=== PATIENT | male | born 1950 | race Native Hawaiian/Other Pacific Islander ===

== ENCOUNTER 2018-10-15 11:35 | Inpatient (IN) | payer MEDICARE ==
[2018-10-15 12:58] LABS: BASO # 0.1 K/uL (0.0-0.2); BASO % 1.1 % (0.0-2.0); EOS # 0.2 K/uL (0.0-0.7); EOS % 2.6 % (0.0-4.0); HEMOGLOBIN 13.6 g/dL (12.0-18.0); LYMPH # 1.6 K/uL (1.0-4.3); LYMPH % 25.6 % (20.0-40.0); MEAN CELL VOLUME 85.9 fL (80.0-94.0); MEAN CORPUSCULAR HEMOGLOBIN 28.6 pg (27.0-31.0); MEAN CORPUSCULAR HGB CONC 33.3 g/dL (33.0-37.0); MEAN PLATELET VOLUME 10.4 fL (7.2-11.7); MONO # 0.7 K/uL (0.0-0.8); MONO % 11.5 % (0.0-10.0); NEUT # 3.6 K/uL (1.8-7.0); NEUT % 59.2 % (50.0-75.0); NRBC % 0.1 % (0.0-2.0); RBC 4.77 Mil/uL (4.40-5.90); RED CELL DISTRIBUTION WIDTH 14.9 % (11.5-14.5); WHITE BLOOD COUNT 6.1 K/uL (4.8-10.8)
--- NOTE | 2018-10-15 13:05 | RAD ---
HISTORY: SOB COMPARISON: Chest x-ray performed 04/29/18 TECHNIQUE: Chest, one view. FINDINGS: Examination limited by habitus. LUNGS: Central vascular prominence. No focal consolidation. Please note that chest x-ray has limited sensitivity for the detection of pulmonary masses. PLEURA: No significant pleural effusion identified. No definite pneumothorax . CARDIOVASCULAR: Cardiomegaly. Atherosclerotic calcifications present. OSSEOUS STRUCTURES: No acute osseous abnormality identified. VISUALIZED UPPER ABDOMEN: Unremarkable. OTHER FINDINGS: None. IMPRESSION: Cardiomegaly. Central vascular prominence. No focal consolidation.
[2018-10-15 13:06] LABS: INR 1.4; PROTHROMBIN TIME 15.5 SECONDS (9.7-12.2)
[2018-10-15 13:11] LABS: ALB/GLOB RATIO 1.2 (1.0-2.1); ALBUMIN 4.4 g/dL (3.5-5.0); BLOOD UREA NITROGEN 23 mg/dL (9-20); CALCIUM 8.4 mg/dl (8.6-10.4); GFR NON-AFRICAN AMERICAN > 60
[2018-10-15 13:19] LABS: ALT/SGPT 31 U/L (21-72); AST/SGOT 43 U/L (17-59)
[2018-10-15 13:22] LABS: B-TYPE NATRIURETIC PEPTIDE 3470 pg/mL (0-900)
[2018-10-15] MEDS ORDERED: Dextrose 50% SYRINGE Inj (50 ml) ONE (14:14)
[2018-10-15] MEDS ORDERED: Dextrose 50% SYRINGE Inj (50 ml) IV STA (14:24)
--- NOTE | 2018-10-15 14:47 | C.PDOC ---
History Of Present Illness 68 year old male with a history of CHF presents to the ED for evaluation of bilateral lower extremity swelling and knee pain for 5 days. Denies fever, chills, and any other associated symptoms. Time Seen by Provider: 10/15/18 12:05 Chief Complaint (Nursing): Lower Extremity Problem/Injury History Per: Patient History/Exam Limitations: no limitations Onset/Duration Of Symptoms: Days (x5) Current Symptoms Are (Timing): Still Present Recent travel outside of the [place]: No Past Medical History Reviewed: Historical Data, Nursing Documentation, Vital Signs Vital Signs: Last Vital Signs Temp 98.0 F 10/15/18 11:52 Pulse 71 10/15/18 14:05 Resp 18 10/15/18 14:05 BP 156/99 H 10/15/18 14:05 Pulse Ox 96 10/15/18 11:52 - Medical History PMH: Arthritis, Asthma, Atrial Fibrillation, Bronchitis, CHF, COPD, HTN, Hypercholesterolemia, Sleep Apnea Denies: Chronic Kidney Disease Family History: States: Unknown Family Hx - Social History Hx Alcohol Use: No Hx Substance Use: No - Immunization History Hx Tetanus Toxoid Vaccination: No Hx Influenza Vaccination: No Hx Pneumococcal Vaccination: No Review Of Systems Except As Marked, All Systems Reviewed And Found Negative. Constitutional: Negative for: Fever, Chills Musculoskeletal: Positive for: Leg Pain (bilateral knee pain. ), Other (bilateral lower extremity swelling. ) Physical Exam - Physical Exam Appears: Well, Non-toxic, No Acute Distress Skin: Normal Color, Warm, Dry Head: Atraumatic, Normacephalic Eye(s): bilateral: Normal Inspection Oral Mucosa: Moist Neck: Normal ROM Chest: Symmetrical Cardiovascular: Rhythm Regular, No Murmur Respiratory: No Rales, No Rhonchi, No Wheezing, Other (crackles in the bases, bilaterally. ) Gastrointestinal/Abdominal: Normal Exam, Soft, No Tenderness Extremity: Normal ROM, Tenderness (bilateral knee tenderness. ), No Deformity, Other (Pedal edema 2+ ) Neurological/Psych: Oriented x3, Normal Speech, Normal Cognition ED Course And Treatment - Laboratory Results Result Diagrams: 10/15/18 12:35 10/15/18 12:00 ECG Rhythm: Atrial Fibrillation, Nonspecific Changes Rate From EC O2 Sat by Pulse Oximetry: 96 (RA) Pulse Ox Interpretation: Normal - Other Rad CXR X-Ray: Viewed By Me, Read By Radiologist Interpretation: FINDINGS: Examination limited by habitus. LUNGS: Central vascular prominence. No focal consolidation. Please note that chest x-ray has limited sensitivity for the detection of pulmonary masses. PLEURA: No significant pleural effusion identified. No definite pneumothorax . CARDIOVASCULAR: Cardiomegaly. Atherosclerotic calcifications present. OSSEOUS STRUCTURES: No acute osseous abnormality identified. VISUALIZED UPPER ABDOMEN: Unremarkable. OTHER FINDINGS: None. IMPRESSION: Cardiomegaly. Central vascular prominence. No focal consolidation. Medical Decision Making Medical Decision Making: Plan: -EKG -Dextrose 50% -Blood sent. -CXR -Glucose POC Progress/Update: 2:51pm : Spoke with Dr. Smith regarding the patients case. Accepted to TELE/OBS. 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 - Scribe Statement The provider has reviewed the documentation as recorded by the Scribe (Lucinda Pinon) All medical record entries made by the Scribe were at my direction and personally dictated by me. I have reviewed the chart and agree that the record accurately reflects my personal performance of the history, physical exam, medical decision making, and the department course for this patient. I have also personally directed, reviewed, and agree with the discharge instructions and disposition. Decision To Admit - Pt Status Changed To: Hospital Disposition Of: Observation - . Bed Request Type: Telemetry Admitting Physician: Paulina Smith Patient Diagnosis: CHF (congestive heart failure), Hypoglycemia
[2018-10-15] MEDS ORDERED: Potassium Chloride 20 mEq/15 ml LIQ UD PO STA (15:25)
[2018-10-15] MEDS ORDERED: Potassium Chloride 20 mEq/15 ml LIQ UD ONE (15:34)
--- NOTE | 2018-10-15 16:49 | RAD ---
Date of service: 10/15/2018 PROCEDURE: Bilateral Knee Radiographs. HISTORY: pain, atraumatic COMPARISON: None available. FINDINGS: BONES: Right Knee: No acute displaced fracture identified. Degenerative changes. Left Knee: No acute displaced fracture identified. Degenerative changes. JOINTS: Right Knee: No dislocation. Mild joint space narrowing, greatest at the medial compartment. Left knee: No dislocation. Mild joint space narrowing, greatest at the medial compartment. SOFT TISSUES: Right Knee: Vascular calcifications. No evidence of radiopaque foreign body. Left Knee: Vascular calcifications. No evidence of radiopaque foreign body. JOINT EFFUSION: Right Knee: Small suprapatellar joint effusion. Left Knee: No significant joint effusion identified. OTHER FINDINGS: None. IMPRESSION: Degenerative changes. Small right suprapatellar joint effusion.
[2018-10-15] MEDS ORDERED: Home Med 1 UNIT (Metformin [Glucophage] 1,000 MG) PO SCH (18:00)
[2018-10-15 20:25] VITALS: RESP 20
[2018-10-16 07:35] LABS: BLOOD UREA NITROGEN 21 mg/dL (9-20); CALCIUM 8.8 mg/dl (8.6-10.4); GFR NON-AFRICAN AMERICAN > 60; URIC ACID 4.9 mg/dL (3.5-8.5)
[2018-10-16 07:46] LABS: CK-MB 1.41 ng/mL (0.0-3.38)
[2018-10-16] MEDS: Fluticasone-Vilanterol 100/25mcg Diskus INH SCH (09:54)
[2018-10-16] MEDS: Pantoprazole 40 mg EC Tab PO SCH (09:57)
[2018-10-16] MEDS ORDERED: Home Med 1 UNIT (Febuxostat [Uloric] 40 MG) PO SCH (10:00)
[2018-10-16] MEDS ORDERED: Home Med 1 UNIT (Linagliptin [Tradjenta] 5 MG) PO SCH (10:00)
[2018-10-16] MEDS: Potassium Chloride 20 mEq ER Tab PO SCH ×2 (10:06→18:41)
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
[2018-10-16] MEDS: MethylPREDNISolone 40 mg Vial IVP SCH ×2 (18:36→22:36)
[2018-10-16] MEDS: Albuterol-Ipratrop 3 mg / 0.5 (3 ml) UD INH SCH (19:24)
[2018-10-16] MEDS: Azithromycin 500 MG in Sodium Chloride 0.9% 250 ML IVPB SCH (21:30)
[2018-10-17] MEDS: Albuterol-Ipratrop 3 mg / 0.5 (3 ml) UD INH SCH ×4 (03:13→21:08)
[2018-10-17] MEDS: MethylPREDNISolone 40 mg Vial IVP SCH ×3 (05:37→22:15)
[2018-10-17 06:51] LABS: ALB/GLOB RATIO 1.2 (1.0-2.1); ALBUMIN 4.6 g/dL (3.5-5.0); ALT/SGPT 30 U/L (21-72); AST/SGOT 38 U/L (17-59); BLOOD UREA NITROGEN 24 mg/dL (9-20); CALCIUM 8.8 mg/dl (8.6-10.4); GFR NON-AFRICAN AMERICAN > 60
[2018-10-17] MEDS: Fluticasone-Vilanterol 100/25mcg Diskus INH SCH (07:40)
[2018-10-17] MEDS: Potassium Chloride 20 mEq ER Tab PO SCH ×2 (09:19→17:12)
[2018-10-17] MEDS: Pantoprazole 40 mg EC Tab PO SCH (09:19)
--- NOTE | 2018-10-17 12:22 | CP.PCM.PN ---
Subjective - Date & Time of Evaluation Date of Evaluation: 10/17/18 Time of Evaluation: 11:50 - Subjective Subjective: -patient less short of breath but still complains of difficulty ambulating because of pain on both feet and shortness of breath -Feet still swollen but seems less today- will get arterial and venous duplex scan -no chest pain -BP still elevated most of the time. adjusting meds -pulmonary consult noted and appreciated -Echocardiogram done. will review Objective - Vital Signs/Intake and Output Vital Signs (last 24 hours): Temp Pulse Resp BP Pulse Ox 97.6 F 77 20 168/92 H 98 10/17/18 08:00 10/17/18 11:35 10/17/18 08:00 10/17/18 11:35 10/17/18 08:00 - Medications Medications: Current Medications Albuterol/Ipratropium (Duoneb 3 Mg/0.5 Mg (3 Ml) Ud) 3 ml INH RQ6 [facility] Last Admin: 10/17/18 07:40 Dose: Not Given Amlodipine Besylate (Norvasc) 5 mg PO DAILY [facility] Last Admin: 10/17/18 09:18 Dose: 5 mg Apixaban (Eliquis) 5 mg PO BID [facility] Last Admin: 10/17/18 09:18 Dose: 5 mg Clonidine HCl (Catapres) 0.3 mg PO BID [facility] Last Admin: 10/17/18 09:19 Dose: Not Given Fluticasone/Vilanterol (Breo Ellipta 100-25 Mcg Inh) 1 puff INH RQD [facility] Last Admin: 10/17/18 07:40 Dose: Not Given Furosemide (Lasix) 40 mg IVP DAILY [facility] Last Admin: 10/17/18 09:19 Dose: 40 mg Gabapentin (Neurontin) 100 mg PO TID [facility] Last Admin: 10/17/18 09:18 Dose: 100 mg Home Med (Febuxostat [Uloric]) 40 mg PO DAILY [facility] Home Med (Linagliptin [Tradjenta]) 5 mg PO DAILY [facility] Azithromycin 500 mg/ Sodium (Chloride) 250 mls @ 250 mls/hr IVPB Q24H [facility]; Protocol Last Admin: 10/16/18 21:30 Dose: 250 mls/hr Losartan Potassium (Cozaar) 100 mg PO DAILY [facility] Last Admin: 10/17/18 09:19 Dose: 100 mg Metformin HCl (Glucophage) 1,000 mg PO BID [facility] Last Admin: 10/17/18 09:19 Dose: 1,000 mg Methylprednisolone (Solu-Medrol) 40 mg IVP Q8 [facility] Last Admin: 10/17/18 05:37 Dose: 40 mg Nebivolol (Bystolic) 20 mg PO DAILY [facility] Last Admin: 10/17/18 09:19 Dose: 20 mg Pantoprazole Sodium (Protonix Ec Tab) 40 mg PO DAILY [facility] Last Admin: 10/17/18 09:19 Dose: 40 mg Potassium Chloride (K-Dur 20 Meq Er Tab) 20 meq PO BID [facility] Last Admin: 10/17/18 09:19 Dose: 20 meq Repaglinide (Prandin) 2 mg PO BIDAC [facility] Last Admin: 10/17/18 09:18 Dose: 2 mg Rosuvastatin Calcium (Crestor) 10 mg PO HS [facility] Last Admin: 10/16/18 22:37 Dose: 10 mg Tramadol HCl (Ultram) 50 mg PO TID PRN PRN Reason: Pain, Mild (1-3) Last Admin: 10/16/18 22:36 Dose: 50 mg - Labs Labs: 10/15/18 12:35 10/17/18 06:24 PT 15.5 SECONDS (9.7-12.2) H 10/15/18 12:35 INR 1.4 10/15/18 12:35 APTT 39 SECONDS (21-34) H 10/15/18 12:35 - Constitutional Appears: No Acute Distress - Head Exam Head Exam: NORMOCEPHALIC - Eye Exam Eye Exam: Normal appearance - ENT Exam ENT Exam: Normal Exam - Neck Exam Neck Exam: Normal Inspection - Respiratory Exam Respiratory Exam: Clear to Ausculation Bilateral - Cardiovascular Exam Cardiovascular Exam: Irregular Rhythm, +S1, +S2 - GI/Abdominal Exam GI & Abdominal Exam: Soft, Normal Bowel Sounds - Rectal Exam Rectal Exam: Deferred - Extremities Exam Additional comments: both feet swollen. painful soles when he walks - Neurological Exam Neurological Exam: Alert, Awake, Oriented x3 - Psychiatric Exam Psychiatric exam: Normal Affect, Normal Mood - Skin Skin Exam: Dry, Normal Color, Warm Assessment and Plan (1) Shortness of breath Assessment & Plan: Continue nebulizer and steroid as per Pulmo Status: Acute (2) CHF (congestive heart failure) Assessment & Plan: Echocardiogram done today. Will review Status: Chronic (3) Uncontrolled hypertension Assessment & Plan: modifying BP meds Status: Chronic (4) Uncontrolled diabetes mellitus Assessment & Plan: Continue current Rx Status: Chronic (5) Arthritis Assessment & Plan: -still complains of pain on both feet probably from arthritis, plantar fasciitis and diabetic neuropathy -started on Gabapentin and on tramadol for arthritis. Unable to start NSAID due to concurrent anticoagulant therapy for atrial fib -will get arterial and [id number] duplex scan of both lower ext. Status: Acute (6) REINA (obstructive sleep apnea) Assessment & Plan: Pulmonary consultation noted and appreciated Status: Acute (7) Elevated BUN Assessment & Plan: most likely from diuretics and steroids. Will d/c iv lasix. Status: Acute
--- NOTE | 2018-10-17 16:12 | CARD ---
APPROVED REPORT Date of service: 10/16/2018 EKG Measurement Heart [id number] <Conclusion> Atrial fibrillation with premature ventricular or aberrantly conducted complexes Prolonged QT Abnormal ECG
--- NOTE | 2018-10-17 16:12 | CARD ---
APPROVED REPORT Date of service: 10/17/2018 EKG Measurement Heart [id number] <Conclusion> Atrial fibrillation with rapid ventricular response Nonspecific ST and T wave abnormality Prolonged QT Abnormal ECG
--- NOTE | 2018-10-17 16:18 | CP.PCM.PN ---
<Tino Escalante - Last Filed: 10/17/18 16:13> Subjective - Date & Time of Evaluation Date of Evaluation: 10/17/18 Time of Evaluation: 12:13 - Subjective Subjective: Pulmonology Note for Dr. Siddiqi Patient seen and examined this morning at bedside. Patient is complaining of paroxysmal nocturnal dyspnea. Patient is well known to Dr. Siddiqi and is known to be non-compliant with CPAP machine at home. He complains of day time fatigue. He is also complaining of right big toe pain. Denies any chest pain or shortness of breath at time of exam. Exam General: No acute distress Cardiac: irregularly irregular rhythm Pulmonary: CTA b/l Abd: soft, non-tender, non-distended Extremities: pedal edema 1+ b/l, tender to palpation of 1st digit Objective - Vital Signs/Intake and Output Vital Signs (last 24 hours): Temp Pulse Resp BP Pulse Ox 97.6 F 77 20 168/92 H 98 10/17/18 08:00 10/17/18 11:35 10/17/18 08:00 10/17/18 11:35 10/17/18 08:00 - Medications Medications: Current Medications Albuterol/Ipratropium (Duoneb 3 Mg/0.5 Mg (3 Ml) Ud) 3 ml INH RQ6 [facility] Last Admin: 10/17/18 13:40 Dose: 3 ml Allopurinol (Zyloprim) 100 mg PO DAILY [facility] Last Admin: 10/17/18 13:18 Dose: 100 mg Amlodipine Besylate (Norvasc) 5 mg PO DAILY [facility] Last Admin: 10/17/18 09:18 Dose: 5 mg Apixaban (Eliquis) 5 mg PO BID [facility] Last Admin: 10/17/18 09:18 Dose: 5 mg Clonidine HCl (Catapres) 0.2 mg PO TID [facility] Last Admin: 10/17/18 13:18 Dose: 0.2 mg Fluticasone/Vilanterol (Breo Ellipta 100-25 Mcg Inh) 1 puff INH RQD [facility] Last Admin: 10/17/18 07:40 Dose: Not Given Furosemide (Lasix) 40 mg PO BID [facility] Gabapentin (Neurontin) 100 mg PO TID [facility] Last Admin: 10/17/18 13:18 Dose: 100 mg Azithromycin 500 mg/ Sodium (Chloride) 250 mls @ 250 mls/hr IVPB Q24H [facility]; Protocol Last Admin: 10/16/18 21:30 Dose: 250 mls/hr Losartan Potassium (Cozaar) 100 mg PO DAILY [facility] Last Admin: 10/17/18 09:19 Dose: 100 mg Metformin HCl (Glucophage) 1,000 mg PO BID [facility] Last Admin: 10/17/18 09:19 Dose: 1,000 mg Methylprednisolone (Solu-Medrol) 40 mg IVP Q8 [facility] Last Admin: 10/17/18 13:24 Dose: 40 mg Nebivolol (Bystolic) 20 mg PO DAILY [facility] Last Admin: 10/17/18 09:19 Dose: 20 mg Pantoprazole Sodium (Protonix Ec Tab) 40 mg PO DAILY [facility] Last Admin: 10/17/18 09:19 Dose: 40 mg Potassium Chloride (K-Dur 20 Meq Er Tab) 20 meq PO BID [facility] Last Admin: 10/17/18 09:19 Dose: 20 meq Repaglinide (Prandin) 2 mg PO BIDAC [facility] Last Admin: 10/17/18 09:18 Dose: 2 mg Rosuvastatin Calcium (Crestor) 10 mg PO HS [facility] Last Admin: 10/16/18 22:37 Dose: 10 mg Sitagliptin Phosphate (Januvia) 100 mg PO DAILY [facility] Last Admin: 10/17/18 13:18 Dose: 100 mg Tramadol HCl (Ultram) 50 mg PO TID PRN PRN Reason: Pain, Mild (1-3) Last Admin: 10/16/18 22:36 Dose: 50 mg - Labs Labs: 10/15/18 12:35 10/17/18 06:24 PT 15.5 SECONDS (9.7-12.2) H 10/15/18 12:35 INR 1.4 10/15/18 12:35 APTT 39 SECONDS (21-34) H 10/15/18 12:35 Assessment and Plan (1) COPD exacerbation Assessment & Plan: Continue nebulizers and IV steroids Continue diuretics Pt on Symbicort due to insurance purposes Antitussive for cough Patient counseled on CPAP use at night Status: Chronic (2) REINA (obstructive sleep apnea) Assessment & Plan: Orders placed for CPAP for nighttime use - start at pressure of 10cm Patient has been non-compliant with CPAP at home. Patient counseled on importance of correct CPAP use. Status: Acute <DevangMihaela guillenLuis S - Last Filed: 10/17/18 18:17> Objective - Vital Signs/Intake and Output Vital Signs (last 24 hours): Temp Pulse Resp BP Pulse Ox 97.6 F 77 20 170/75 H 98 10/17/18 08:00 10/17/18 11:35 10/17/18 08:00 10/17/18 17:22 10/17/18 08:00 - Medications Medications: Current Medications Albuterol/Ipratropium (Duoneb 3 Mg/0.5 Mg (3 Ml) Ud) 3 ml INH RQ6 [facility] Last Admin: 10/17/18 13:40 Dose: 3 ml Allopurinol (Zyloprim) 100 mg PO DAILY [facility] Last Admin: 10/17/18 13:18 Dose: 100 mg Amlodipine Besylate (Norvasc) 5 mg PO DAILY [facility] Last Admin: 10/17/18 09:18 Dose: 5 mg Apixaban (Eliquis) 5 mg PO BID [facility] Last Admin: 10/17/18 17:12 Dose: 5 mg Clonidine HCl (Catapres) 0.2 mg PO TID [facility] Last Admin: 10/17/18 17:12 Dose: 0.2 mg Fluticasone/Vilanterol (Breo Ellipta 100-25 Mcg Inh) 1 puff INH RQD [facility] Last Admin: 10/17/18 07:40 Dose: Not Given Furosemide (Lasix) 40 mg PO BID [facility] Last Admin: 10/17/18 17:22 Dose: 40 mg Gabapentin (Neurontin) 100 mg PO TID [facility] Last Admin: 10/17/18 17:12 Dose: 100 mg Azithromycin 500 mg/ Sodium (Chloride) 250 mls @ 250 mls/hr IVPB Q24H [facility]; Protocol Last Admin: 10/17/18 17:10 Dose: 250 mls/hr Losartan Potassium (Cozaar) 100 mg PO DAILY [facility] Last Admin: 10/17/18 09:19 Dose: 100 mg Metformin HCl (Glucophage) 1,000 mg PO BID [facility] Last Admin: 10/17/18 17:24 Dose: 1,000 mg Methylprednisolone (Solu-Medrol) 40 mg IVP Q8 [facility] Last Admin: 10/17/18 13:24 Dose: 40 mg Nebivolol (Bystolic) 20 mg PO DAILY [facility] Last Admin: 10/17/18 09:19 Dose: 20 mg Pantoprazole Sodium (Protonix Ec Tab) 40 mg PO DAILY [facility] Last Admin: 10/17/18 09:19 Dose: 40 mg Potassium Chloride (K-Dur 20 Meq Er Tab) 20 meq PO BID [facility] Last Admin: 10/17/18 17:12 Dose: 20 meq Repaglinide (Prandin) 2 mg PO BIDAC [facility] Last Admin: 10/17/18 17:24 Dose: 2 mg Rosuvastatin Calcium (Crestor) 10 mg PO HS [facility] Last Admin: 10/16/18 22:37 Dose: 10 mg Sitagliptin Phosphate (Januvia) 100 mg PO DAILY [facility] Last Admin: 10/17/18 13:18 Dose: 100 mg Tramadol HCl (Ultram) 50 mg PO TID PRN PRN Reason: Pain, Mild (1-3) Last Admin: 10/17/18 17:10 Dose: 50 mg - Labs Labs: 10/15/18 12:35 10/17/18 06:24 PT 15.5 SECONDS (9.7-12.2) H 10/15/18 12:35 INR 1.4 10/15/18 12:35 APTT 39 SECONDS (21-34) H 10/15/18 12:35 Assessment and Plan (1) COPD exacerbation Status: Chronic (2) REINA (obstructive sleep apnea) Status: Acute Attending/Attestation - Attestation I have personally seen and examined this patient.: Yes I have fully participated in the care of the patient.: Yes I have reviewed all pertinent clinical information, including history, physical exam and plan: Yes Notes (Text): 10/17/18 18:16 the patient seen and examined Advised to use CPAP at night Continue steroids, nebulizer treatment and antibiotics
--- NOTE | 2018-10-17 17:08 | CARD ---
APPROVED REPORT Date of service: 10/17/2018 EXAM: Two-dimensional and M-mode echocardiogram with Doppler and color Doppler. Other Information Quality : GoodRhythm : INDICATION Congestive Heart Failure RISK FACTORS Hypertension Obesity Hyperlipidemia Diabetes 2D DIMENSIONS IVSd1.3 (0.7-1.1cm)LVDd4.7 (3.9-5.9cm) PWd1.4 (0.7-1.1cm)LA [id number] (18-58mL) LVDs3.0 (2.5-4.0cm)FS (%) 36.3 % LVEF (%)66.0 (>50%)LVEF (Perez's)56.89 % M-Mode DIMENSIONS Left Atrium (MM)5.74 (2.5-4.0cm)IVSd1.02 (0.7-1.1cm) Aortic Root3.66 (2.2-3.7cm)LVDd6.61 (4.0-5.6cm) Aortic Cusp Exc.1.51 (1.5-2.0cm)PWd1.02 (0.7-1.1cm) FS (%) 28 %LVDs4.74 (2.0-3.8cm) LVEF (%)53 (>50%) Mitral Valve MV E Xieieprq091.6cm/sMV A Xafisfmx27.8cm/sE/A ratio3.7 TDI Lateral E' Peak V7.96cm/sMedial E' Peak V5.77cm/sE/Lateral E'17.7 E/Medial E'24.4 Tricuspid Valve TR Peak Aiiounuj023vx/sTR Peak Gr.[id number] LEFT VENTRICLE The left ventricle is normal size. There is mild concentric left ventricular hypertrophy. The Ejection Fraction is 60-65%. There is normal LV segmental wall motion. Transmitral Doppler flow pattern is Grade II-pseudonormal filling dynamics. The left atrial pressure is moderately elevated.mildly elevated la volume index of 39 cc/sqm. RIGHT VENTRICLE The right ventricle is normal size. The right ventricular systolic function is normal. ATRIA The left atrium is severely dilated. The right atrium size is normal. The interatrial septum is intact with no evidence for an atrial septal defect. AORTIC VALVE The aortic valve is trileaflet. The aortic valve is mildly sclerotic. There is trace aortic regurgitation. MITRAL VALVE Mitral annular calcification is mild to moderate. Mitral regurgitation is mild. TRICUSPID VALVE The tricuspid valve is normal in structure. There is moderate tricuspid regurgitation. Right ventricular systolic pressure is estimated at 70 mmHg. There is severe pulmonary hypertension. PULMONIC VALVE The pulmonary valve is normal in structure. GREAT VESSELS The aortic root is normal size. The aortic root displays mild sclerocalcific changes of the aortic root. ivc is mildly dilated with normal inspiratory collpse, PERICARDIAL EFFUSION There is no pericardial effusion. <Conclusion> The left ventricle is normal size. There is mild concentric left ventricular hypertrophy. The Ejection Fraction is 60-65%. Transmitral Doppler flow pattern is Grade II-pseudonormal filling dynamics. The left atrial pressure is moderately elevated.mildly elevated la volume index of 39 cc/sqm. The left atrium is severely dilated. Mitral regurgitation is mild. There is moderate tricuspid regurgitation. Right ventricular systolic pressure is estimated at 70 mmHg. There is severe pulmonary hypertension. The aortic root is normal size. The aortic root displays mild sclerocalcific changes of the aortic root. ivc is mildly dilated with normal inspiratory collpse, There is no pericardial effusion.
[2018-10-17] MEDS: Azithromycin 500 MG in Sodium Chloride 0.9% 250 ML IVPB SCH (17:10)
--- NOTE | 2018-10-17 21:45 | CARD ---
APPROVED REPORT Date of service: 10/15/2018 EKG Measurement Heart [id number] <Conclusion> Atrial fibrillation Nonspecific T wave abnormality Abnormal ECG
[2018-10-18] MEDS: Albuterol-Ipratrop 3 mg / 0.5 (3 ml) UD INH SCH ×2 (01:20→07:45)
[2018-10-18] MEDS: MethylPREDNISolone 40 mg Vial IVP SCH ×2 (05:33→13:38)
[2018-10-18 07:22] LABS: BASO % 0.2 % (0.0-2.0); EOS % 0.2 % (0.0-4.0); HEMOGLOBIN 12.9 g/dL (12.0-18.0); LYMPH # 0.9 K/uL (1.0-4.3); LYMPH % 7.5 % (20.0-40.0); MEAN CELL VOLUME 85.7 fL (80.0-94.0); MEAN CORPUSCULAR HEMOGLOBIN 28.2 pg (27.0-31.0); MEAN CORPUSCULAR HGB CONC 32.9 g/dL (33.0-37.0); MEAN PLATELET VOLUME 11.2 fL (7.2-11.7); MONO # 0.5 K/uL (0.0-0.8); NEUT # 10.5 K/uL (1.8-7.0); NEUT % 88.1 % (50.0-75.0); PLATELET COUNT 235 K/uL (130-400); RBC 4.58 Mil/uL (4.40-5.90); RED CELL DISTRIBUTION WIDTH 14.6 % (11.5-14.5)
[2018-10-18 07:39] LABS: ALB/GLOB RATIO 1.2 (1.0-2.1); ALBUMIN 4.6 g/dL (3.5-5.0); ALT/SGPT 32 U/L (21-72); AST/SGOT 33 U/L (17-59); BLOOD UREA NITROGEN 30 mg/dL (9-20); CALCIUM 8.7 mg/dl (8.6-10.4); GFR NON-AFRICAN AMERICAN > 60
[2018-10-18] MEDS: Fluticasone-Vilanterol 100/25mcg Diskus INH SCH (07:45)
[2018-10-18 08:19] VITALS: TEMP 97.7; O2SAT 97
[2018-10-18 09:04] LABS: LYMPHOCYTE 6 % (20-40); MONOCYTE 4 % (0-10); NEUTROPHIL 90 % (50-75); PLATELET ESTIMATE NORMAL (NORMAL); TOTAL CELLS COUNTED 100
[2018-10-18 10:23] VITALS: BP 164/90
[2018-10-18] MEDS: Potassium Chloride 20 mEq ER Tab PO SCH (10:55)
[2018-10-18] MEDS: Pantoprazole 40 mg EC Tab PO SCH (10:56)
[2018-10-18 12:37] VITALS: PULSE 90
--- NOTE | 2018-10-18 13:04 | CP.PCM.DIS ---
Provider - Provider Date of Admission: 10/16/18 14:41 Attending physician: Paulina Smith MD Primary care physician: Anita Smith Consults: 10/16/18 14:15 Pulmonology Consult Routine Comment: Consulting Provider: Luis Siddiqi Consulting Physician: Luis Siddiqi Reason for Consult: shortness of breath, REINA Time Spent in preparation of Discharge (in minutes): 45 Diagnosis - Discharge Diagnosis (1) Shortness of breath Status: Chronic Comment: Shortness of breath much improved.Patient claims to feel better. (2) CHF (congestive heart failure) Status: Chronic Priority: Medium Comment: Acute on chronic biventricular diastolic heart failure. Will continue current Rx. Echocardiogram noted. concentric LVH, severely dilated LA, LVEF- 60- 65%. +Severe pulmonary hypertension noted. (3) REINA (obstructive sleep apnea) Status: Chronic Comment: Advised to follow up with Business Relationship Manager regarding machine problem. Echocardiogram noted- severe pulmonary hypertension noted contributing to the shortness of breath. (4) Uncontrolled hypertension Status: Chronic Comment: Improving on current medications. Will continue same and follow up in office next week. (5) Uncontrolled diabetes mellitus Status: Chronic Comment: noted blood sugar elevation today most likely from the steroids (6) Diabetic neuropathy associated with type 2 diabetes mellitus Status: Chronic Comment: Most likely cause of foot pain. Imprpved with gabapentin and duloxetine. Will continue same at home. (7) Arthritis Status: Chronic Comment: Foot pain most likely more from neuropathy than arthritis. Started on Gabapentin and Duloxetine. (8) Elevated BUN Status: Acute Comment: Most likely from the diuretics and steroids. Will follow up outpatient. (9) Elevated WBC count Status: Acute Comment: Most likely from steroids also. Will follow outpatient. (10) Morbid obesity Status: Chronic Comment: Advised to lose weight. Hospital Course - Lab Results Lab Results: Most Recent Lab Values WBC 12.0 K/uL (4.8-10.8) H D 10/18/18 07:02 RBC 4.58 Mil/uL (4.40-5.90) 10/18/18 07:02 Hgb 12.9 g/dL (12.0-18.0) 10/18/18 07:02 Hct 39.3 % (35.0-51.0) 10/18/18 07:02 MCV 85.7 fL (80.0-94.0) 10/18/18 07:02 MCH 28.2 pg (27.0-31.0) 10/18/18 07:02 MCHC 32.9 g/dL (33.0-37.0) L 10/18/18 07:02 RDW 14.6 % (11.5-14.5) H 10/18/18 07:02 Plt Count 235 K/uL (130-400) 10/18/18 07:02 MPV 11.2 fL (7.2-11.7) 10/18/18 07:02 Neut % (Auto) 88.1 % (50.0-75.0) H 10/18/18 07:02 Lymph % (Auto) 7.5 % (20.0-40.0) L 10/18/18 07:02 Cottle % (Auto) 4.0 % (0.0-10.0) 10/18/18 07:02 Eos % (Auto) 0.2 % (0.0-4.0) 10/18/18 07:02 Baso % (Auto) 0.2 % (0.0-2.0) 10/18/18 07:02 Neut # (Auto) 10.5 K/uL (1.8-7.0) H 10/18/18 07:02 Lymph # (Auto) 0.9 K/uL (1.0-4.3) L 10/18/18 07:02 Cottle # (Auto) 0.5 K/uL (0.0-0.8) 10/18/18 07:02 Eos # (Auto) 0.0 K/uL (0.0-0.7) 10/18/18 07:02 Baso # (Auto) 0.0 K/uL (0.0-0.2) 10/18/18 07:02 Neutrophils % (Manual) 90 % (50-75) H 10/18/18 07:02 Lymphocytes % (Manual) 6 % (20-40) L 10/18/18 07:02 Monocytes % (Manual) 4 % (0-10) 10/18/18 07:02 Platelet Estimate Normal (NORMAL) 10/18/18 07:02 RBC Morphology Normal 10/18/18 07:02 PT 15.5 SECONDS (9.7-12.2) H 10/15/18 12:35 INR 1.4 10/15/18 12:35 APTT 39 SECONDS (21-34) H 10/15/18 12:35 Sodium 139 mmol/L (132-148) 10/18/18 07:02 Potassium 3.6 mmol/L (3.6-5.2) 10/18/18 07:02 Chloride 100 mmol/L (98-107) 10/18/18 07:02 Carbon Dioxide 24 mmol/L (22-30) 10/18/18 07:02 Anion Gap 18 (10-20) 10/18/18 07:02 BUN 30 mg/dL (9-20) H 10/18/18 07:02 Creatinine 1.1 mg/dL (0.8-1.5) 10/18/18 07:02 Est GFR ( Amer) > 60 10/18/18 07:02 Est GFR (Non-Af Amer) > 60 10/18/18 07:02 POC Glucose (mg/dL) 323 mg/dL (65-110) H 10/18/18 11:26 Random Glucose 174 mg/dL (75-110) H 10/18/18 07:02 Hemoglobin A1c 6.9 % (4.2-6.5) H 10/16/18 07:18 Uric Acid 4.9 mg/dL (3.5-8.5) 10/16/18 07:18 Calcium 8.7 mg/dl (8.6-10.4) 10/18/18 07:02 Magnesium 1.9 mg/dL (1.6-2.3) 10/15/18 12:00 Total Bilirubin 0.4 mg/dL (0.2-1.3) 10/18/18 07:02 AST 33 U/L (17-59) 10/18/18 07:02 ALT 32 U/L (21-72) 10/18/18 07:02 Alkaline Phosphatase 65 U/L (38-126) 10/18/18 07:02 Total Creatine Kinase 177 U/L (55-170) H 10/16/18 19:44 CK-MB (Mass) 1.30 ng/mL (0.0-3.38) 10/16/18 19:44 Troponin I < 0.0120 ng/mL (0.00-0.120) 10/16/18 19:44 NT-Pro-B Natriuret Pep 3470 pg/mL (0-900) H 10/15/18 12:00 Total Protein 8.3 g/dL (6.3-8.3) 10/18/18 07:02 Albumin 4.6 g/dL (3.5-5.0) 10/18/18 07:02 Globulin 3.7 gm/dL (2.2-3.9) 10/18/18 07:02 Albumin/Globulin Ratio 1.2 (1.0-2.1) 10/18/18 07:02 - Hospital Course Hospital Course: This is a 68 y/o male hypertensive, diabetic, morbidly obeses with history of CHF, COPD and REINA who was admitted because of shortness of breath and foot pain and swelling. He was seen in the ER and found to be hypoglycemic with blood sugar of 36 and quite short of breath hence he was admitted. His blood sugar was monitored and medications were adjusted accordingly. patient was restarted back on his medicines including IV Lasix and O2. Pulmonology consultation was requested who added nebulizers and steroids. he was also given Gabapentine and Duloxetine for diabetic neuropathy. His uric acid was wnl. Colcrys was discontinued without any adverse response. He had an echocardiogram done that showed concentric LVH with normal EF, dilated LA and severe pulmanry HTN. He started feeling better and was subsequently discharged. He will continue with most of his medications. Arrangements for outpatient follow up was made by myself. He was also advised to follow up with Business Relationship Manager. - Date & Time of H&P Date of H&P: 10/18/18 Time of H&P: 01:00 Discharge Exam - Head Exam Head Exam: NORMOCEPHALIC - Eye Exam Eye Exam: Normal appearance - Neck Exam Neck exam: Normal Inspection - Respiratory Exam Respiratory Exam: Clear to PA & Lateral, NORMAL BREATHING PATTERN - Cardiovascular Exam Cardiovascular Exam: Irregular Rhythm, +S1, +S2 - GI/Abdominal Exam GI & Abdominal Exam: Unremarkable - Extremities Exam Extremities exam: pedal edema Discharge Plan - Follow Up Plan Condition: FAIR Disposition: HOME/ ROUTINE Additional Instructions: Pulmonology outpatient follow up appt. arrangements for home health nurse and aide, commode, rolling walker.
--- NOTE | 2018-10-18 15:10 | VASCLAB ---
Date of service: 10/17/2018 PROCEDURE: Lower Extremity Venous Duplex Exam. HISTORY: pain and leg swelling PRIORS: None. TECHNIQUE: Bilateral common femoral, femoral, popliteal and posterior tibial, peroneal and great saphenous veins were evaluated. Flow was assessed with color Doppler, compressibility, assessment of phasic flow and augmentation response. Report prepared by James Gomez, BS, RVT FINDINGS: RIGHT: 1. Common Femoral Vein: 1.1. Compressibility - Fully compressible: Thrombus - None : Flow - Phasic: Augmentation -Normal: Reflux - None. 2. Femoral Vein: 2.1. Compressibility - Fully compressible: Thrombus - None : Flow - Phasic: Augmentation -Normal: Reflux - None. 3. Popliteal Vein: 3.1. Compressibility - Fully compressible: Thrombus - None : Flow - Phasic: Augmentation -Normal: Reflux - None. 4. Posterior Tibial Vein: 4.1. Compressibility - Fully compressible: Thrombus - None: Flow - Phasic: Augmentation -Normal: Reflux - None. 5. Peroneal Vein: 5.1. Compressibility - Fully compressible: Thrombus - None: Flow - Phasic: Augmentation -Normal: Reflux - None. 6. Great Saphenous Vein: 6.1. Compressibility - Fully compressible: Thrombus - None: Flow - Phasic: Augmentation - Normal: Reflux - None. LEFT: 1. Common Femoral Vein: 1.1. Compressibility - Fully compressible: Thrombus - None: Flow - Phasic: Augmentation -Normal: Reflux - None. 2. Femoral Vein: 2.1. Compressibility - Fully compressible: Thrombus - None: Flow - Phasic: Augmentation -Normal: Reflux - None. 3. Popliteal Vein: 3.1. Compressibility - Fully compressible: Thrombus - None : Flow - Phasic: Augmentation -Normal: Reflux - None. 4. Posterior Tibial Vein: 4.1. Compressibility - Fully compressible: Thrombus - None: Flow - Phasic: Augmentation -Normal: Reflux - None. 5. Peroneal Vein: 5.1. Compressibility - Fully compressible: Thrombus - None: Flow - Phasic: Augmentation -Normal: Reflux - None. 6. Great Saphenous Vein: 6.1. Compressibility - Fully compressible: Thrombus - None: Flow - Phasic: Augmentation - Normal: Reflux - None. OTHER FINDINGS: Right: None significant. Left: None significant. IMPRESSION: Right: No evidence of deep or superficial vein thrombosis of the right lower extremity. Normal valve function noted of the right side. Left: No evidence of deep or superficial vein thrombosis of the left lower extremity. Normal valve function noted of the left side.
--- NOTE | 2018-10-18 16:46 | CP.PCM.PN ---
Subjective - Date & Time of Evaluation Date of Evaluation: 10/18/18 Time of Evaluation: 11:35 - Subjective Subjective: Pulmonology Progress Note for Dr. Siddiqi Patient seen and examined at bedside this morning. States that shortness of breath has improved with use of CPAP at night time. Denies any episodes of paroxysmal nocturnal dyspnea with use of CPAP. Patient is still complaining of left foot pain, which he attributes to his episodes of swelling. Patient states that his old CPAP machine prevented him from sleeping so he stopped using it. He inquired about possible smaller machine to use which would allow him to sleep at night. Patient denies fevers, chills, nausea, vomiting, diarrhea, constipation, chest pain or abdominal pain. Objective - Vital Signs/Intake and Output Vital Signs (last 24 hours): Temp Pulse Resp BP Pulse Ox 97.7 F 90 20 164/90 H 97 10/18/18 07:00 10/18/18 07:23 10/18/18 07:00 10/18/18 10:55 10/18/18 07:00 Intake and Output: 10/18/18 10/18/18 06:59 18:59 Intake Total 250 Balance 250 - Labs Labs: 10/18/18 07:02 10/18/18 07:02 PT 15.5 SECONDS (9.7-12.2) H 10/15/18 12:35 INR 1.4 10/15/18 12:35 APTT 39 SECONDS (21-34) H 10/15/18 12:35 - Constitutional Appears: No Acute Distress, Other (obese) - Head Exam Head Exam: ATRAUMATIC, NORMOCEPHALIC - Eye Exam Eye Exam: Normal appearance - ENT Exam ENT Exam: Mucous Membranes Moist - Respiratory Exam Respiratory Exam: Clear to Ausculation Bilateral, NORMAL BREATHING PATTERN. absent: Accessory Muscle Use, Rales, Rhonchi, Wheezes, Respiratory Distress - Cardiovascular Exam Cardiovascular Exam: REGULAR RHYTHM, +S1, +S2 - GI/Abdominal Exam GI & Abdominal Exam: Soft. absent: Distended, Firm, Guarding, Rigid, Tenderness Additional comments: obese - Neurological Exam Neurological Exam: Alert, Awake - Psychiatric Exam Psychiatric exam: Normal Affect, Normal Mood - Skin Skin Exam: Dry, Warm Assessment and Plan (1) COPD exacerbation Assessment & Plan: continue Symbicort. Patient stable from pulmonary standpoint for discharge Status: Chronic (2) REINA (obstructive sleep apnea) Assessment & Plan: continue CPAP while inhouse recommend smaller CPAP machine to assist patient with sleeping - will need to be set up as outpatient Status: Chronic
== END 2018-10-18 14:07 | disposition home or self-care (01) | DRG 637 ==
LOC: C.ER 11:35 → C.9E 15:20 → C.6T 16:30 → OBSVTOIN 10-16 14:41
PROVIDERS: ADMIT Internal Medicine Cardiovascular Disease; ATTEND Internal Medicine Cardiovascular Disease
DX: E11.649 Type 2 diabetes mellitus with hypoglycemia without coma (principal); I50.33 Acute on chronic diastolic (congestive) heart failure; J44.1 Chronic obstructive pulmonary disease with (acute) exacerbation; E11.40 Type 2 diabetes mellitus with diabetic neuropathy, unspecified; I11.0 Hypertensive heart disease with heart failure; E11.65 Type 2 diabetes mellitus with hyperglycemia; E66.01 Morbid (severe) obesity due to excess calories; E78.00 Pure hypercholesterolemia, unspecified; G47.33 Obstructive sleep apnea (adult) (pediatric); I27.20 Pulmonary hypertension, unspecified; I48.91 Unspecified atrial fibrillation; M72.2 Plantar fascial fibromatosis; Z87.891 Personal history of nicotine dependence; Z91.19 Patient's noncompliance with other medical treatment and regimen; Z68.39 Body mass index [BMI] 39.0-39.9, adult; Z79.84 Long term (current) use of oral hypoglycemic drugs

== ENCOUNTER 2018-10-26 09:47 | Inpatient (IN) | payer MEDICARE | END 2018-10-29 17:35 | LOC: C.ER 09:47 → C.9E 14:07 → C.3T 16:07 ==

== ENCOUNTER 2019-01-18 06:05 | Observation (INO) | payer MEDICARE ==
[2019-01-18 06:05] VITALS: BMI 39.9
--- NOTE | 2019-01-18 06:18 | C.PDOC ---
History Of Present Illness Patient woke up short of brerath and with some chest tightness. Pt received 40 mg iv lasix and 5 slntg. Pt is able to speak in 2-3 word sentences. No f/c/n/v Time Seen by Provider: 01/18/19 06:16 History Per: Patient, Family History/Exam Limitations: no limitations Onset/Duration Of Symptoms: Hrs Current Symptoms Are (Timing): Still Present Initiating Event: Other Quality: Dull, Tightness Exacerbating Factor(s): Coughing Current Respiratory Medications: See Home Med List Severity: Severe Pain Scale Rating Of: 8 Associated Symptoms: denies: Fever, Chills Reports Recently: Seen In ED, Treated By A Physician Recent travel outside of the [place]: No Additional History Per: Family Past Medical History Reviewed: Historical Data, Nursing Documentation, Vital Signs - Medical History PMH: Arthritis, Asthma, Atrial Fibrillation, Bronchitis, CHF, COPD, HTN, Hypercholesterolemia, Peripheral Edema, Sleep Apnea Denies: Chronic Kidney Disease - [facility] Procedures ASSISTANCE WITH RESPIRATORY VENTILATION, 24-96 HRS, CPAP (10/26/18) Family History: States: No Known Family Hx - Social History Hx Alcohol Use: No Hx Substance Use: No - Immunization History Hx Tetanus Toxoid Vaccination: No Hx Influenza Vaccination: No Hx Pneumococcal Vaccination: No Review Of Systems Constitutional: Negative for: Fever, Chills Eyes: Negative for: Vision Change ENT: Negative for: Throat Pain Cardiovascular: Positive for: Chest Pain Respiratory: Positive for: Shortness of Breath, SOB with Excertion Gastrointestinal: Negative for: Nausea, Vomiting, Abdominal Pain Genitourinary: Negative for: Dysuria Musculoskeletal: Negative for: Back Pain Skin: Negative for: Rash Neurological: Negative for: Weakness Psych: Negative for: Anxiety Physical Exam - Physical Exam Appears: In Acute Distress Skin: Warm, Dry Head: Normacephalic Eye(s): bilateral: Normal Inspection Oral Mucosa: Moist Neck: Supple Chest: Symmetrical Cardiovascular: Rhythm Irregular Respiratory: Decreased Breath Sounds, Rales, No Rhonchi, No Wheezing Gastrointestinal/Abdominal: Soft, No Tenderness, Distention, No Guarding, No R ebound Back: No CVA Tenderness Extremity: Pedal Edema, Swelling Extremity: Bilateral: Atraumatic Pulses: Left Dorsalis Pedis: Normal, Right Dorsalis Pedis: Normal Neurological/Psych: Oriented x3 Gait: Unable To Assess ED Course And Treatment ECG: Interpreted By Me, Viewed By Me ECG Rhythm: Atrial Fibrillation (119), Nonspecific Changes O2 Sat by Pulse Oximetry: 98 Pulse Ox Interpretation: Normal - Radiology CXR: Interpreted by Me, Viewed By Me Critical Care Time - Critical Care Note Total Time (in mins): 30 Documented critical care: time excludes all time spent performing seperately billable procedures. Disposition Counseled Patient/Family Regarding: Studies Performed, Diagnosis - Disposition Disposition Time: 06:18 Condition: GUARDED - Clinical Impression Clinical Impression: COPD exacerbation, Respiratory distress Physician Patient Turnover Patient Signed Over To: Aleta Maya Handoff Comments: pending labs, re-eval and disposition
[2019-01-18] MEDS ORDERED: Aspirin 325 mg EC Tablets PO STA (06:19)
[2019-01-18 07:00] LABS: ABG ALLEN TEST POS; ARTERIAL BLOOD GAS HCO3 20.2 mmol/L (21-28); ARTERIAL BLOOD GAS O2 SAT 100.2 % (95-98); ARTERIAL BLOOD GAS PCO2 42 mm/Hg (35-45); ARTERIAL BLOOD GAS PH 7.29 (7.35-7.45); ARTERIAL BLOOD GAS PO2 218 mm/Hg (80-100); ARTERIAL BLOOD GAS TCO2 21.5 mmol/L (22-28)
[2019-01-18] MEDS ORDERED: Aspirin 325 mg EC Tablets PO ONE ×2 (07:04→07:05)
[2019-01-18 07:10] LABS: BASO # 0.1 K/uL (0.0-0.2); BASO % 0.5 % (0.0-2.0); EOS # 0.3 K/uL (0.0-0.7); EOS % 2.5 % (0.0-4.0); HEMOGLOBIN 12.5 g/dL (12.0-18.0); LYMPH # 1.6 K/uL (1.0-4.3); LYMPH % 12.5 % (20.0-40.0); MEAN CORPUSCULAR HEMOGLOBIN 29.3 pg (27.0-31.0); MEAN CORPUSCULAR HGB CONC 33.2 g/dL (33.0-37.0); MEAN PLATELET VOLUME 9.9 fL (7.2-11.7); MONO # 0.6 K/uL (0.0-0.8); MONO % 4.6 % (0.0-10.0); NEUT # 10.4 K/uL (1.8-7.0); NEUT % 79.9 % (50.0-75.0); RBC 4.29 Mil/uL (4.40-5.90); RED CELL DISTRIBUTION WIDTH 16.2 % (11.5-14.5)
[2019-01-18 07:16] LABS: INR 1.2; PROTHROMBIN TIME 13.6 SECONDS (9.7-12.2)
[2019-01-18 07:18] LABS: MEAN CELL VOLUME 88.2 fL (80.0-94.0)
--- NOTE | 2019-01-18 08:48 | RAD ---
Date of service: 01/18/2019 HISTORY: SOB COMPARISON: None available. TECHNIQUE: 1 view obtained. FINDINGS: LUNGS: Questionable right basilar infiltrate. PA and lateral projections are recommended for added characterization as this may be artifactual from the patient's body habitus. PLEURA: No significant pleural effusion identified, no pneumothorax apparent. CARDIOVASCULAR: Calcific atherosclerotic changes are seen related to the thoracic aorta. Cardiomegaly. No pulmonary vascular congestion. OSSEOUS STRUCTURES: No significant abnormalities. VISUALIZED UPPER ABDOMEN: Normal. OTHER FINDINGS: None. IMPRESSION: Questionable in infiltrate right base. Stable cardiomegaly. No pulmonary congestion.
[2019-01-18 08:51] LABS: ALB/GLOB RATIO 1.6 (1.0-2.1); ALBUMIN 4.4 g/dL (3.5-5.0); ALT/SGPT 19 U/L (21-72); AST/SGOT 32 U/L (17-59); BLOOD UREA NITROGEN 16 mg/dL (9-20); CALCIUM 8.6 mg/dl (8.6-10.4); GFR NON-AFRICAN AMERICAN > 60
[2019-01-18 09:35] LABS: B-TYPE NATRIURETIC PEPTIDE 2410 pg/mL (0-900); CK-MB 1.28 ng/mL (0.0-3.38)
[2019-01-18] MEDS: Potassium Chloride 20 mEq ER Tab PO SCH (17:20)
[2019-01-18 18:01] LABS: CK-MB 1.61 ng/mL (0.0-3.38)
[2019-01-18 18:05] LABS: TROPONIN I 0.027 ng/mL (0.00-0.120)
[2019-01-18 19:30] LABS: SQUAMOUS EPITHIAL < 1 /hpf (0-5); URINE BACTERIA OCC (<OCC); URINE BILIRUBIN NEGATIVE (NEGATIVE); URINE BLOOD NEGATIVE (NEGATIVE); URINE CLARITY Clear (Clear); URINE COLOR Yellow (YELLOW); URINE GLUCOSE (UA) 3+ mg/dL (Normal); URINE LEUKOCYTE ESTERASE NEG Leu/uL (Negative); URINE PROTEIN 2+ mg/dL (NEGATIVE); URINE UROBILINOGEN NORMAL mg/dL (0.2-1.0)
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
[2019-01-18 23:20] LABS: CK-MB 1.82 ng/mL (0.0-3.38); TROPONIN I 0.025 ng/mL (0.00-0.120)
--- NOTE | 2019-01-19 05:49 | CP.PCM.CON ---
History of Present Illness - History of Present Illness History of Present Illness: 68 Male with hx of Pulm HTN, DM2, HTN, Nyperlipidemia and obesity admittted for dyspnea Etiology: Pulmonary Vs. Cardiopulmonary Check ECHO, ROMIs, ProBNP Likely benefit from [facility] Will follow D/w the patient and the primary Past Patient History - Infectious Disease Hx of Infectious Diseases: None - Tetanus Immunizations Tetanus Immunization: Unknown - Past Medical History & Family History Past Medical History?: Yes - Past Social History Smoking Status: Former Smoker - CARDIAC Hx Atrial Fibrillation: Yes Hx Congestive Heart Failure: Yes Hx Hypercholesterolemia: Yes Hx Hypertension: Yes Hx Peripheral Edema: Yes - PULMONARY Hx Asthma: Yes Hx Bronchitis: Yes Hx Chronic Obstructive Pulmonary Disease (COPD): Yes Hx Sleep Apnea: Yes - NEUROLOGICAL Hx Neurological Disorder: No - HEENT Hx HEENT Problems: Yes Hx Cataracts: Yes - RENAL Hx Chronic Kidney Disease: No - ENDOCRINE/METABOLIC Hx Endocrine Disorders: Yes Hx Diabetes Mellitus Type 2: Yes - HEMATOLOGICAL/ONCOLOGICAL Hx Blood Disorders: No Hx Blood Transfusions: No - INTEGUMENTARY Hx Dermatological Problems: No - MUSCULOSKELETAL/RHEUMATOLOGICAL Hx Arthritis: Yes - GASTROINTESTINAL Hx Gastrointestinal Disorders: No - GENITOURINARY/GYNECOLOGICAL Hx Genitourinary Disorders: No - PSYCHIATRIC Hx Substance Use: No - SURGICAL HISTORY Hx Surgeries: Yes Hx Cataract Extraction: Yes Other/Comment: Spinal surgery w/ Keven , Carpal tunnel sx. - ANESTHESIA Hx Anesthesia: Yes Hx Anesthesia Reactions: No Hx Malignant Hyperthermia: No Meds Allergies/Adverse Reactions: Allergies Allergy/AdvReac Type Severity Reaction Status Date / Time No Known Allergies Allergy Verified 10/26/18 09:56 - Medications Medications: Current Medications Allopurinol (Zyloprim) 100 mg PO DAILY [facility] Amlodipine Besylate (Norvasc) 5 mg PO DAILY [facility] Apixaban (Eliquis) 5 mg PO BID [facility] Last Admin: 01/18/19 17:20 Dose: 5 mg Duloxetine HCl (Cymbalta) 30 mg PO DAILY [facility] Famotidine (Pepcid) 20 mg PO DAILY [facility] Furosemide (Lasix) 40 mg IVP Q12 [facility] Last Admin: 01/18/19 21:46 Dose: 40 mg Gabapentin (Neurontin) 300 mg PO TID [facility] Last Admin: 01/18/19 17:20 Dose: 300 mg Glipizide (Glucotrol) 5 mg PO ACBD [facility] Losartan Potassium (Cozaar) 100 mg PO DAILY [facility] Nebivolol (Bystolic) 20 mg PO DAILY [facility] Potassium Chloride (K-Dur 20 Meq Er Tab) 20 meq PO BID [facility] Last Admin: 01/18/19 17:20 Dose: 20 meq Rosuvastatin Calcium (Crestor) 20 mg PO HS [facility] Last Admin: 01/18/19 21:46 Dose: 20 mg Tamsulosin HCl (Flomax) 0.4 mg PO DAILY [facility] Results - Vital Signs Recent Vital Signs: Last Vital Signs Temp 98.1 F 01/18/19 23:10 Pulse 86 01/18/19 23:10 Resp 20 01/18/19 23:10 BP 164/96 H 01/19/19 04:37 Pulse Ox 100 01/18/19 23:10 - Labs Result Diagrams: 01/18/19 06:41 01/18/19 06:41 Labs: Laboratory Results - last 24 hr 01/18/19 01/18/19 01/18/19 06:41 06:41 06:41 WBC 13.0 H D RBC 4.29 L Hgb 12.5 Hct 37.8 MCV 88.2 D MCH 29.3 MCHC 33.2 RDW 16.2 H Plt Count 161 MPV 9.9 Neut % (Auto) 79.9 H Lymph % (Auto) 12.5 L [place] % (Auto) 4.6 Eos % (Auto) 2.5 Baso % (Auto) 0.5 Neut # (Auto) 10.4 H Lymph # (Auto) 1.6 [place] # (Auto) 0.6 Eos # (Auto) 0.3 Baso # (Auto) 0.1 PT 13.6 H INR 1.2 APTT 33 Puncture Site pCO2 pO2 HCO3 ABG pH ABG Total CO2 ABG O2 Saturation ABG Base Excess Rolando Test ABG Potassium A-a O2 Difference Respiratory Index Glucose Lactate FiO2 Inspiratory BiPAP Expiratory BiPAP Blood Gas Comments Crit Value Called To Crit Value Called By Crit Value Read Back Blood Gas Notified Time Sodium 136 Potassium 3.4 L Chloride 98 Carbon Dioxide 27 Anion Gap 15 BUN 16 Creatinine 1.0 Est GFR ( Amer) > 60 Est GFR (Non-Af Amer) > 60 POC Glucose (mg/dL) Random Glucose 282 H D Hemoglobin A1c Calcium 8.6 Magnesium 1.6 Total Bilirubin 0.8 AST 32 ALT 19 L D Alkaline Phosphatase 80 Total Creatine Kinase 81 CK-MB (Mass) 1.28 Troponin I < 0.0120 NT-Pro-B Natriuret Pep 2410 H Total Protein 7.2 Albumin 4.4 Globulin 2.8 Albumin/Globulin Ratio 1.6 TSH 3rd Generation 1.85 Arterial Blood Potassium Urine Color Urine Clarity Urine pH Ur Specific [place] Urine Protein Urine Glucose (UA) Urine Ketones Urine Blood Urine Nitrate Urine Bilirubin Urine Urobilinogen Ur Leukocyte Esterase Urine WBC (Auto) Urine RBC (Auto) Ur Squamous Epith Cells Urine Bacteria B-Hydroxybutyrate 0.19 01/18/19 01/18/19 01/18/19 06:50 06:53 17:24 WBC RBC Hgb Hct MCV MCH MCHC RDW Plt Count MPV Neut % (Auto) Lymph % (Auto) [place] % (Auto) Eos % (Auto) Baso % (Auto) Neut # (Auto) Lymph # (Auto) [place] # (Auto) Eos # (Auto) Baso # (Auto) PT INR APTT Puncture Site Lr pCO2 42 pO2 218 H HCO3 20.2 L ABG pH 7.29 L ABG Total CO2 21.5 L ABG O2 Saturation 100.2 H ABG Base Excess -6.1 L Rolando Test Pos ABG Potassium 2.2 L* A-a O2 Difference 229.0 Respiratory Index 1.1 Glucose 209 H Lactate 1.7 FiO2 70.0 Inspiratory BiPAP 14 Expiratory BiPAP 6 Blood Gas Comments K value 2.2 Crit Value Called To Dr parmar Crit Value Called By Reji lainez Crit Value Read Back Y Blood Gas Notified Time 659 Sodium 140.0 Potassium Chloride 111.0 H Carbon Dioxide Anion Gap BUN Creatinine Est GFR ( Amer) Est GFR (Non-Af Amer) POC Glucose (mg/dL) Random Glucose Hemoglobin A1c 7.4 H Calcium Magnesium Total Bilirubin AST ALT Alkaline Phosphatase Total Creatine Kinase 98 CK-MB (Mass) 1.61 Troponin I 0.0270 NT-Pro-B Natriuret Pep Total Protein Albumin Globulin Albumin/Globulin Ratio TSH 3rd Generation Arterial Blood Potassium 2.2 L* Urine Color Urine Clarity Urine pH Ur Specific [place] Urine Protein Urine Glucose (UA) Urine Ketones Urine Blood Urine Nitrate Urine Bilirubin Urine Urobilinogen Ur Leukocyte Esterase Urine WBC (Auto) Urine RBC (Auto) Ur Squamous Epith Cells Urine Bacteria B-Hydroxybutyrate 01/18/19 01/18/19 01/18/19 17:32 19:05 20:57 WBC RBC Hgb Hct MCV MCH MCHC RDW Plt Count MPV Neut % (Auto) Lymph % (Auto) [place] % (Auto) Eos % (Auto) Baso % (Auto) Neut # (Auto) Lymph # (Auto) [place] # (Auto) Eos # (Auto) Baso # (Auto) PT INR APTT Puncture Site pCO2 pO2 HCO3 ABG pH ABG Total CO2 ABG O2 Saturation ABG Base Excess Rolando Test ABG Potassium A-a O2 Difference Respiratory Index Glucose Lactate FiO2 Inspiratory BiPAP Expiratory BiPAP Blood Gas Comments Crit Value Called To Crit Value Called By Crit Value Read Back Blood Gas Notified Time Sodium Potassium Chloride Carbon Dioxide Anion Gap BUN Creatinine Est GFR ( Amer) Est GFR (Non-Af Amer) POC Glucose (mg/dL) 247 H 175 H Random Glucose Hemoglobin A1c Calcium Magnesium Total Bilirubin AST ALT Alkaline Phosphatase Total Creatine Kinase CK-MB (Mass) Troponin I NT-Pro-B Natriuret Pep Total Protein Albumin Globulin Albumin/Globulin Ratio TSH 3rd Generation Arterial Blood Potassium Urine Color Yellow Urine Clarity Clear Urine pH 5.0 Ur Specific [place] 1.015 Urine Protein 2+ H Urine Glucose (UA) 3+ H Urine Ketones Negative Urine Blood Negative Urine Nitrate Negative Urine Bilirubin Negative Urine Urobilinogen Normal Ur Leukocyte Esterase Neg Urine WBC (Auto) 2 Urine RBC (Auto) < 1 Ur Squamous Epith Cells < 1 Urine Bacteria Occ H B-Hydroxybutyrate 01/18/19 22:48 WBC RBC Hgb Hct MCV MCH MCHC RDW Plt Count MPV Neut % (Auto) Lymph % (Auto) [place] % (Auto) Eos % (Auto) Baso % (Auto) Neut # (Auto) Lymph # (Auto) [place] # (Auto) Eos # (Auto) Baso # (Auto) PT INR APTT Puncture Site pCO2 pO2 HCO3 ABG pH ABG Total CO2 ABG O2 Saturation ABG Base Excess Rolando Test ABG Potassium A-a O2 Difference Respiratory Index Glucose Lactate FiO2 Inspiratory BiPAP Expiratory BiPAP Blood Gas Comments Crit Value Called To Crit Value Called By Crit Value Read Back Blood Gas Notified Time Sodium Potassium Chloride Carbon Dioxide Anion Gap BUN Creatinine Est GFR ( Amer) Est GFR (Non-Af Amer) POC Glucose (mg/dL) Random Glucose Hemoglobin A1c Calcium Magnesium Total Bilirubin AST ALT Alkaline Phosphatase Total Creatine Kinase 120 CK-MB (Mass) 1.82 Troponin I 0.0250 NT-Pro-B Natriuret Pep Total Protein Albumin Globulin Albumin/Globulin Ratio TSH 3rd Generation Arterial Blood Potassium Urine Color Urine Clarity Urine pH Ur Specific [place] Urine Protein Urine Glucose (UA) Urine Ketones Urine Blood Urine Nitrate Urine Bilirubin Urine Urobilinogen Ur Leukocyte Esterase Urine WBC (Auto) Urine RBC (Auto) Ur Squamous Epith Cells Urine Bacteria B-Hydroxybutyrate
[2019-01-19] MEDS: Potassium Chloride 20 mEq ER Tab PO SCH ×2 (09:17→17:01)
--- NOTE | 2019-01-19 09:28 | RAD ---
Date of service: 01/19/2019 HISTORY: chf COMPARISON: 01/18/2010 TECHNIQUE: 1 view obtained. FINDINGS: LUNGS: The relative opacity at both lung bases is less now-improved aeration is inferred. No worsening atelectasis or infiltrate is believed present. PLEURA: No significant pleural effusion identified, no pneumothorax apparent. CARDIOVASCULAR: There is presence of aortic atherosclerotic calcification on x-ray. Cardiomegaly-similar. Mild pulmonary venous congestion suggested less now than before. OSSEOUS STRUCTURES: Thoracic spondylosis. VISUALIZED UPPER ABDOMEN: Normal. OTHER FINDINGS: None. IMPRESSION: Interval improved aeration at each lung base. No dense consolidation seen. Cardiomegaly and pulmonary venous congestion-as discussed above
--- NOTE | 2019-01-19 12:38 | CARD ---
APPROVED REPORT Date of service: 01/18/2019 EKG Measurement Heart [id number] <Conclusion> Atrial fibrillation with rapid ventricular response Nonspecific ST and T wave abnormality Prolonged QT Abnormal ECG
--- NOTE | 2019-01-19 13:02 | CP.PCM.PN ---
"<Naomie Montalvo - Last Filed: 01/19/19 17:01> Subjective - Date & Time of Evaluation Date of Evaluation: 01/19/19 Time of Evaluation: 12:57 - Subjective Subjective: Cardiology Consult Note for Dr. Jessica Patient seen and examined at bedside. No overnight events reported. Denies any chest pain and SOB has improved. Admits to palpitations. 12 point review of systems negative unless stated. Objective - Vital Signs/Intake and Output Vital Signs (last 24 hours): Temp Pulse Resp BP Pulse Ox 98.2 F 103 H 20 162/86 H 97 01/19/19 07:15 01/19/19 11:33 01/19/19 07:15 01/19/19 09:18 01/19/19 07:15 Intake and Output: 01/19/19 01/19/19 06:59 18:59 Intake Total 310 Output Total 1000 Balance -690 - Medications Medications: Current Medications Allopurinol (Zyloprim) 100 mg PO DAILY [facility] Last Admin: 01/19/19 09:17 Dose: 100 mg Amlodipine Besylate (Norvasc) 5 mg PO DAILY [facility] Last Admin: 01/19/19 09:17 Dose: 5 mg Apixaban (Eliquis) 5 mg PO BID [facility] Last Admin: 01/19/19 09:16 Dose: 5 mg Duloxetine HCl (Cymbalta) 30 mg PO DAILY [facility] Last Admin: 01/19/19 09:17 Dose: 30 mg Famotidine (Pepcid) 20 mg PO DAILY [facility] Last Admin: 01/19/19 09:17 Dose: 20 mg Furosemide (Lasix) 40 mg IVP Q12 [facility] Last Admin: 01/19/19 09:18 Dose: 40 mg Gabapentin (Neurontin) 300 mg PO TID [facility] Last Admin: 01/19/19 09:16 Dose: 300 mg Glipizide (Glucotrol) 5 mg PO ACBD [facility] Last Admin: 01/19/19 08:01 Dose: 5 mg Losartan Potassium (Cozaar) 100 mg PO DAILY [facility] Last Admin: 01/19/19 09:16 Dose: 100 mg Nebivolol (Bystolic) 20 mg PO DAILY [facility] Last Admin: 01/19/19 09:17 Dose: 20 mg Potassium Chloride (K-Dur 20 Meq Er Tab) 20 meq PO BID [facility] Last Admin: 01/19/19 09:17 Dose: 20 meq Rosuvastatin Calcium (Crestor) 20 mg PO HS [facility] Last Admin: 01/18/19 21:46 Dose: 20 mg Tamsulosin HCl (Flomax) 0.4 mg PO DAILY [facility] Last Admin: 01/19/19 09:17 Dose: 0.4 mg - Labs Labs: 01/18/19 06:41 01/18/19 06:41 PT 13.6 SECONDS (9.7-12.2) H 01/18/19 06:41 INR 1.2 01/18/19 06:41 APTT 33 SECONDS (21-34) 01/18/19 06:41 - Constitutional Appears: Non-toxic, No Acute Distress - Head Exam Head Exam: ATRAUMATIC, NORMOCEPHALIC - Eye Exam Eye Exam: EOMI, Normal appearance - ENT Exam ENT Exam: Mucous Membranes Moist - Respiratory Exam Respiratory Exam: Accessory Muscle Use, Decreased Breath Sounds, Clear to Ausculation Bilateral - Cardiovascular Exam Cardiovascular Exam: Irregular Rhythm, +S1, +S2. absent: RRR - GI/Abdominal Exam GI & Abdominal Exam: Distended (Body Habitus) - Extremities Exam Extremities Exam: Pedal Edema (Improved per patient.) - Neurological Exam Neurological Exam: Alert, Awake, Oriented x3 - Psychiatric Exam Psychiatric exam: Normal Affect, Normal Mood - Skin Skin Exam: Dry, Intact, Normal Color, Warm Assessment and Plan - Assessment and Plan (Free Text) Assessment: 68 Male with hx of Pulm HTN, DM2, HTN, Nyperlipidemia and obesity admittted for dyspnea Etiology: Pulmonary Vs. Cardiopulmonary Plan: Dyspnea/A-fib with RVR ECHO (10/2018): EF: 60-65%, Grade II - psudonormal filling dynamic, Severe Pulm HTN, mild MR, moderate TR Troponins Negative x 3 | BNP 2410 Mgmt: Catherization tomorrow in AM. NPO After midnight. Plan discussed with Dr. Jaskaran Montalvo, PGY-2 <Mango Jessica - Last Filed: 01/19/19 22:19> Objective - Vital Signs/Intake and Output Vital Signs (last 24 hours): Temp Pulse Resp BP Pulse Ox 97.9 F 85 20 170/100 H 97 01/19/19 15:00 01/19/19 16:36 01/19/19 15:00 01/19/19 21:56 01/19/19 15:00 - Medications Medications: Current Medications Allopurinol (Zyloprim) 100 mg PO DAILY [facility] Last Admin: 01/19/19 09:17 Dose: 100 mg Amlodipine Besylate (Norvasc) 5 mg PO DAILY [facility] Last Admin: 01/19/19 09:17 Dose: 5 mg Apixaban (Eliquis) 5 mg PO BID [facility] Last Admin: 01/19/19 17:01 Dose: 5 mg Colchicine (Colocrys) 0.6 mg PO DAILY [facility] Duloxetine HCl (Cymbalta) 30 mg PO DAILY [facility] Last Admin: 01/19/19 09:17 Dose: 30 mg Famotidine (Pepcid) 20 mg PO DAILY [facility] Last Admin: 01/19/19 09:17 Dose: 20 mg Furosemide (Lasix) 40 mg IVP Q12 [facility] Last Admin: 01/19/19 21:56 Dose: 40 mg Gabapentin (Neurontin) 300 mg PO TID [facility] Last Admin: 01/19/19 17:01 Dose: 300 mg Glipizide (Glucotrol) 5 mg PO ACBD [facility] Last Admin: 01/19/19 17:01 Dose: 5 mg Losartan Potassium (Cozaar) 100 mg PO DAILY [facility] Last Admin: 01/19/19 09:16 Dose: 100 mg Nebivolol (Bystolic) 20 mg PO DAILY [facility] Last Admin: 01/19/19 09:17 Dose: 20 mg Potassium Chloride (K-Dur 20 Meq Er Tab) 20 meq PO BID [facility] Last Admin: 01/19/19 17:01 Dose: 20 meq Rosuvastatin Calcium (Crestor) 20 mg PO HS [facility] Last Admin: 01/19/19 21:56 Dose: 20 mg Tamsulosin HCl (Flomax) 0.4 mg PO DAILY [facility] Last Admin: 01/19/19 09:17 Dose: 0.4 mg - Labs Labs: 01/18/19 06:41 01/18/19 06:41 PT 13.6 SECONDS (9.7-12.2) H 01/18/19 06:41 INR 1.2 01/18/19 06:41 APTT 33 SECONDS (21-34) 01/18/19 06:41 Assessment and Plan - Assessment and Plan (Free Text) Plan: Patient seen and evaluated personally by me. Plan of care d/w the medical research associate and as documented"
--- NOTE | 2019-01-19 20:12 | CP.PCM.PN ---
Subjective - Date & Time of Evaluation Date of Evaluation: 01/19/19 Time of Evaluation: 20:11 - Subjective Subjective: Patient today looking much comfortable than yesterday. He is sitting up, he is able to stand up and walk. Complaining of left knee pain. Minimal swelling in the left knee noted. Patient is very concerned about having the angiogram done tomorrow. As of late. He denies any chest pain now, he is able to complete a sentence today. Room air oxygen saturation is 97%. On examination: Chest bilateral good air entry, expiratory wheezing negative Heart sounds are regular. Pedal edema 1+ noted. Minimal tenderness in the prepatellar region on the left knee noted Assessment and recommendation: 68-year-old male with a history of diabetes hypertension hypercholesterolemia history of atrial flutter fibrillation. History of gout. Admitted with the decompensated diastolic heart failure. I discussed with the cardiology. Currently on diuretics. Improving at this time. For possible angiogram tomorrow. Early stages of gout noted. Will add colchicine and will follow the patient. Objective - Vital Signs/Intake and Output Vital Signs (last 24 hours): Temp Pulse Resp BP Pulse Ox 97.9 F 85 20 157/90 H 97 01/19/19 15:00 01/19/19 16:36 01/19/19 15:00 01/19/19 15:00 01/19/19 15:00 - Medications Medications: Current Medications Allopurinol (Zyloprim) 100 mg PO DAILY [facility] Last Admin: 01/19/19 09:17 Dose: 100 mg Amlodipine Besylate (Norvasc) 5 mg PO DAILY [facility] Last Admin: 01/19/19 09:17 Dose: 5 mg Apixaban (Eliquis) 5 mg PO BID [facility] Last Admin: 01/19/19 17:01 Dose: 5 mg Duloxetine HCl (Cymbalta) 30 mg PO DAILY [facility] Last Admin: 01/19/19 09:17 Dose: 30 mg Famotidine (Pepcid) 20 mg PO DAILY [facility] Last Admin: 01/19/19 09:17 Dose: 20 mg Furosemide (Lasix) 40 mg IVP Q12 [facility] Last Admin: 01/19/19 09:18 Dose: 40 mg Gabapentin (Neurontin) 300 mg PO TID [facility] Last Admin: 01/19/19 17:01 Dose: 300 mg Glipizide (Glucotrol) 5 mg PO ACBD [facility] Last Admin: 01/19/19 17:01 Dose: 5 mg Losartan Potassium (Cozaar) 100 mg PO DAILY [facility] Last Admin: 01/19/19 09:16 Dose: 100 mg Nebivolol (Bystolic) 20 mg PO DAILY [facility] Last Admin: 01/19/19 09:17 Dose: 20 mg Potassium Chloride (K-Dur 20 Meq Er Tab) 20 meq PO BID [facility] Last Admin: 01/19/19 17:01 Dose: 20 meq Rosuvastatin Calcium (Crestor) 20 mg PO HS [facility] Last Admin: 01/18/19 21:46 Dose: 20 mg Tamsulosin HCl (Flomax) 0.4 mg PO DAILY [facility] Last Admin: 01/19/19 09:17 Dose: 0.4 mg - Labs Labs: 01/18/19 06:41 01/18/19 06:41 PT 13.6 SECONDS (9.7-12.2) H 01/18/19 06:41 INR 1.2 01/18/19 06:41 APTT 33 SECONDS (21-34) 01/18/19 06:41
[2019-01-20] MEDS ORDERED: Labetalol 5mg/ml (4ml) IV ONE (01:30)
[2019-01-20 07:39] LABS: BASO # 0.1 K/uL (0.0-0.2); BASO % 1.1 % (0.0-2.0); EOS # 0.3 K/uL (0.0-0.7); EOS % 3.2 % (0.0-4.0); HEMOGLOBIN 12.4 g/dL (12.0-18.0); LYMPH # 1.7 K/uL (1.0-4.3); LYMPH % 17.6 % (20.0-40.0); MEAN CORPUSCULAR HGB CONC 34.1 g/dL (33.0-37.0); MEAN PLATELET VOLUME 9.7 fL (7.2-11.7); MONO # 0.8 K/uL (0.0-0.8); MONO % 8.3 % (0.0-10.0); NEUT # 6.8 K/uL (1.8-7.0); NEUT % 69.8 % (50.0-75.0); RBC 4.14 Mil/uL (4.40-5.90); RED CELL DISTRIBUTION WIDTH 16.1 % (11.5-14.5); WHITE BLOOD COUNT 9.8 K/uL (4.8-10.8)
[2019-01-20 08:02] LABS: ALB/GLOB RATIO 1.5 (1.0-2.1); ALBUMIN 4.4 g/dL (3.5-5.0); ALT/SGPT 16 U/L (21-72); AST/SGOT 27 U/L (17-59); BLOOD UREA NITROGEN 18 mg/dL (9-20); GFR NON-AFRICAN AMERICAN > 60; URIC ACID 5.8 mg/dL (3.5-8.5)
[2019-01-20] MEDS: Potassium Chloride 20 mEq ER Tab PO SCH ×2 (10:00→17:00)
[2019-01-20] MEDS ORDERED: Lidocaine 2% MPF (5 ml) Inj ONE (10:21)
[2019-01-20] MEDS ORDERED: Iohexol 350mg/ml 100 ML ONE ×2 (10:21→11:05)
[2019-01-20] MEDS ORDERED: Nitroglycerin 50mg in D5W 50 MG/250 ML BOTTLE IV ONE (10:25)
[2019-01-20] MEDS ORDERED: Verapamil 2 ML ONE (10:26)
[2019-01-20] MEDS ORDERED: Midazolam 2 MG/2 ML VIAL ONE (10:37)
--- NOTE | 2019-01-20 11:12 | CP.PCM.PN ---
Subjective - Date & Time of Evaluation Date of Evaluation: 01/20/19 Time of Evaluation: 11:09 - Subjective Subjective: Patient s/p cardiac cath 1. RCA: Distal 85% two lesion. mid RCA 40% 2. L Main: patent 3. LAD: Luminal irregularities, D1 90% 4. L Cx: Distal 70% 5. LV: EF 60%, EDP 24, No CAD as described. Elective PCI as out patient Medical optimization for REINA and Severe Pulm HTN Objective - Vital Signs/Intake and Output Vital Signs (last 24 hours): Temp Pulse Resp BP Pulse Ox 98.0 F 78 18 130/81 94 L 01/20/19 07:00 01/20/19 07:30 01/20/19 07:00 01/20/19 07:00 01/20/19 07:00 Intake and Output: 01/20/19 01/20/19 06:59 18:59 Intake Total 20 Output Total 400 Balance -380 - Medications Medications: Current Medications Allopurinol (Zyloprim) 100 mg PO DAILY [facility] Last Admin: 01/19/19 09:17 Dose: 100 mg Amlodipine Besylate (Norvasc) 5 mg PO DAILY [facility] Last Admin: 01/19/19 09:17 Dose: 5 mg Apixaban (Eliquis) 5 mg PO BID [facility] Last Admin: 01/19/19 17:01 Dose: 5 mg Colchicine (Colocrys) 0.6 mg PO DAILY [facility] Duloxetine HCl (Cymbalta) 30 mg PO DAILY [facility] Last Admin: 01/19/19 09:17 Dose: 30 mg Famotidine (Pepcid) 20 mg PO DAILY [facility] Last Admin: 01/19/19 09:17 Dose: 20 mg Furosemide (Lasix) 40 mg IVP Q12 [facility] Last Admin: 01/19/19 21:56 Dose: 40 mg Gabapentin (Neurontin) 300 mg PO TID [facility] Last Admin: 01/19/19 17:01 Dose: 300 mg Glipizide (Glucotrol) 5 mg PO ACBD [facility] Last Admin: 01/20/19 08:17 Dose: Not Given Losartan Potassium (Cozaar) 100 mg PO DAILY [facility] Last Admin: 01/19/19 09:16 Dose: 100 mg Nebivolol (Bystolic) 20 mg PO DAILY [facility] Last Admin: 01/19/19 09:17 Dose: 20 mg Potassium Chloride (K-Dur 20 Meq Er Tab) 20 meq PO BID [facility] Last Admin: 01/19/19 17:01 Dose: 20 meq Rosuvastatin Calcium (Crestor) 20 mg PO HS [facility] Last Admin: 01/19/19 21:56 Dose: 20 mg Tamsulosin HCl (Flomax) 0.4 mg PO DAILY [facility] Last Admin: 01/19/19 09:17 Dose: 0.4 mg - Labs Labs: 01/20/19 07:31 01/20/19 07:31 PT 13.6 SECONDS (9.7-12.2) H 01/18/19 06:41 INR 1.2 01/18/19 06:41 APTT 33 SECONDS (21-34) 01/18/19 06:41
[2019-01-20] MEDS: Tramadol 25 mg PO PRN (21:07)
[2019-01-21] MEDS: Tramadol 25 mg PO PRN ×2 (07:50→13:45)
[2019-01-21 08:25] VITALS: PULSE 91; RESP 18; TEMP 98.3; O2SAT 99
[2019-01-21] MEDS: Potassium Chloride 20 mEq ER Tab PO SCH (09:23)
[2019-01-21 09:26] VITALS: BP 178/90
--- NOTE | 2019-01-21 15:58 | PCM.HF ---
Heart Failure Core Measure Angiotensin II Receptor Josiah Prescribed: Yes AnticoagulationTherapy for Atrial Fibrillation/Atrialflutter: Yes
== END 2019-01-21 15:40 | disposition home or self-care (01) ==
LOC: C.ER 06:05 → C.9E 09:38 → C.6T 11:04
PROVIDERS: ADMIT Internal Medicine; ATTEND Internal Medicine
DX: J44.1 Chronic obstructive pulmonary disease with (acute) exacerbation (principal); I48.91 Unspecified atrial fibrillation; I50.33 Acute on chronic diastolic (congestive) heart failure; I27.20 Pulmonary hypertension, unspecified; E11.9 Type 2 diabetes mellitus without complications; E78.5 Hyperlipidemia, unspecified; I11.0 Hypertensive heart disease with heart failure; G47.33 Obstructive sleep apnea (adult) (pediatric); E78.00 Pure hypercholesterolemia, unspecified; I25.10 Atherosclerotic heart disease of native coronary artery without angina pectoris; M10.9 Gout, unspecified; Z79.01 Long term (current) use of anticoagulants; Z87.891 Personal history of nicotine dependence
CPT/HCPCS: 36415; 36600; 71045; 80053; 81001; 82009; 82803; 82948; 83036; 83735; 83880; 84100; 84443; 84484; 84550; 85025; 85610; 85730; 87040; 93005; 93458; 94660; 96374; 97116; 97162; 99152; 99153; 99285; C1769; C1887; C1894; G0378; G8978; G8979; J1644; J1940; J2001; J2250; J3010; Q9967